=== PATIENT | female | born 1960 | race Caucasian/White ===

== ENCOUNTER 2021-06-19 11:48 | Emergency (ER) | payer OTHER, BC ==
[~2021-06-19] VITALS: Ht 157.5 cm; Wt 75.6 kg
[2021-06-19] MEDS ORDERED: LISI10TA22 (12:03)
[2021-06-19] MEDS ORDERED: ATOR1TAB19 (12:03)
[2021-06-19] MEDS ORDERED: LEVO75TA4 (12:03)
[2021-06-19 14:07] VITALS: BP 184/84
== END 2021-06-19 14:10 | disposition home or self-care (01) ==
LOC: M ED 11:48
DX: S09.90XA Unspecified injury of head, initial encounter (principal); M54.2 Cervicalgia; W01.0XXA Fall on same level from slipping, tripping and stumbling without subsequent striking against object, initial encounter; I10 Essential (primary) hypertension; E78.5 Hyperlipidemia, unspecified; E03.9 Hypothyroidism, unspecified; Y92.481 Parking lot as the place of occurrence of the external cause; Y93.9 Activity, unspecified; Y99.0 Civilian activity done for income or pay

== ENCOUNTER 2022-11-02 12:44 | Emergency (ER) | payer BC, OTHER ==
[~2022-11-02] VITALS: Ht 154.9 cm; Wt 74.1 kg
[~2022-11-02 12:44] MED LIST: ATOR1TAB19; LEVO75TA4; LISI10TA22
[2022-11-02] MEDS ORDERED: LIDOCAINE W/EPINEPHRINE 1% 20ML VIAL As Ordered ONE (13:12)
[2022-11-02] MEDS ORDERED: MORPHINE 2 MG/ML 1ML VIAL As Ordered ONE (13:12)
[2022-11-02] MEDS ORDERED: MORPHINE 2 MG/ML 1ML VIAL IV ONE (13:15)
[2022-11-02] MEDS ORDERED: BOOSTRIX VACCINE (TETANUS/DIPHTH/ACEL. PERTUSSIS) 0.5ML SYR IM ONE (13:15)
[2022-11-02] MEDS ORDERED: LIDOCAINE W/EPINEPHRINE 1% 20ML VIAL SC ONE (13:15)
[2022-11-02] MEDS ORDERED: CEPH500C PO (14:46)
[2022-11-02 14:58] VITALS: BP 161/75; TEMP 97; O2SAT 98
== END 2022-11-02 15:05 | disposition home or self-care (01) ==
LOC: EDBD 12:44 → M ED 12:44
DX: S01.01XA Laceration without foreign body of scalp, initial encounter (principal); S00.03XA Contusion of scalp, initial encounter; W22.8XXA Striking against or struck by other objects, initial encounter; Y92.89 Other specified places as the place of occurrence of the external cause; Y93.89 Activity, other specified; Y99.0 Civilian activity done for income or pay; I10 Essential (primary) hypertension; E78.5 Hyperlipidemia, unspecified